=== PATIENT | male | born 1985 | race African-American/Black ===

== ENCOUNTER 2017-06-01 23:28 | Emergency (ER) | payer SELFPAY | END 2017-06-02 11:32 | disposition left against medical advice (07) | LOC: ER 06-02 11:32 | DX: M79.673 Pain in unspecified foot (principal); Z53.21 Procedure and treatment not carried out due to patient leaving prior to being seen by health care provider ==

== ENCOUNTER 2017-06-12 03:31 | Emergency (ER) | payer SELFPAY ==
[~2017-06-12] VITALS: Ht 170.2 cm; Wt 80.0 kg
[2017-06-12] MEDS ORDERED: SODIUM CHLORIDE 0.9% 1,000 ML IV ONE ×2 (06:15→11:00)
[2017-06-12] MEDS ORDERED: ONDANSETRON HCL 4MG/2ML VIAL IV ONE ×2 (06:15→06:45)
[2017-06-12] MEDS ORDERED: METOCLOPRAMIDE HCL 10MG/2ML VIAL IV ONE (08:45)
[2017-06-12] MEDS ORDERED: DIPHENHYDRAMINE 50MG/ML VIAL IV ONE (08:45)
[2017-06-12] MEDS ORDERED: SODIUM CHLORIDE 0.9% 500 ML IV ONE (10:30)
[2017-06-12 13:47] VITALS: BP 114/72
== END 2017-06-12 13:49 | disposition home or self-care (01) ==
LOC: ER 05:25
DX: K52.9 Noninfective gastroenteritis and colitis, unspecified (principal)
CPT/HCPCS: 96361; 96374; 96375; 96376; 99285; J1200; J2405; J2765; J7030; J7040; Z7610